=== PATIENT | male | born 1995 | race Caucasian/White ===

== ENCOUNTER 2021-06-05 10:34 | Emergency (ER) | payer OTHER, SELFPAY ==
[2021-06-05 10:49] VITALS: BP 128/95; PULSE 109; RESP 16; TEMP 36.3; O2SAT 99
--- NOTE | 2021-06-05 11:47 | ED.NAVMDI ---
HPI - Nausea/Vomiting/Diarrhea General Chief complaint: Nausea/Vomiting/Diarrhea Stated complaint: Nausea Time Seen by Provider: 06/05/21 11:48 Source: patient Mode of arrival: ambulatory Limitations: no limitations History of Present Illness HPI Narrative: Guru Gandhi is a 25-year-old male with anxiety and depression who comes to [facility] for nausea vomiting diarrhea since he ate a cheeseburger on Tuesday. However he has been in the [facility] the last few hours and has not vomited Related Data Home Medications Medication Instructions Recorded Confirmed buspirone 10 mg PO DAILY 06/05/21 06/05/21 duloxetine 30 mg PO DAILY 06/05/21 06/05/21 Allergies Allergy/AdvReac Type Severity Reaction Status Date / Time No Known Allergies Allergy Unknown Unverified 06/05/21 11:13 Review of Systems Review of Systems: CONSTITUTIONAL: Denies fever, chills, sweats. EYES: Denies visual changes, redness, discharge. ENT: Denies rhinorrhea, congestion, sore throat, otalgia. CARDIOVASCULAR: Denies chest pain, palpitations, edema. RESPIRATORY: Denies dyspnea, wheezing, cough GASTROINTESTINAL: Denies abdominal pain, has nausea, vomiting, diarrhea. GENITOURINARY: Denies dysuria, hematuria, abnormal discharge SKIN: Denies rash or itching. NEUROLOGIC: Denies numbness, or focal weakness. PSYCHIATRIC: Denies anxiety or depression. PMFSH Past Medical History Medical History Anxiety Depression Family History Family History Other No acute medical problems Social History Social History (Updated 06/05/21 @ 11:58 by Chastity Suarez CNP) Smoking status: Current some day smoker Alcohol intake: current Comments At time of signature, I agree with nursing past medical, surgical, social and family history. There is no relevant family history pertinent to the presenting complaint. Elevation of blood pressure, is anxious and blood pressure elevated due to situation. Discussed follow-up with primary care physician Exam Narrative: GENERAL: This is a well-nourished, well-developed patient, in moderate distress. Very anxious HEAD: normocephalic, atraumatic. EYES:. Sclera clear/white. Vision is grossly intact. EARS: External ears normal, . Hearing grossly intact. NOSE: External nose normal without nasal discharge, nares without redness, no rhinorrhea. THROAT: Mucous membranes dry, NECK: Neck supple, non-tender CARDIOVASCULAR: Tachycardic rate and rhythm without murmurs, gallops, or rubs. RESPIRATORY: Clear to auscultation. Breath sounds equal bilaterally. No wheezes, rales, or rhonchi. GASTROINTESTINAL: Abdomen soft, non-tender epigastric and flank SKIN: warm, intact with no suspicious lesions or rash, good texture and turgor. NEURO: awake, alert, and oriented to person, place and time. There were no obvious focal neurologic abnormalities. Steady gait EXTREMITIES: Normal range of motion. BACK: Nontender without deformity Course Course Emergency Course: Patient is here with nausea vomiting diarrhea after eating a double cheeseburger on Tuesday still having some nausea and difficulty swallowing and vomiting Started on Zofran, Protonix and Imodium-discussed how to use this and cautions about reasons to follow-up in the emergency room including continued dehydration, fever, increased pain Vital Signs Vital signs: Vital Signs Temperature 97.3 F L 06/05/21 10:49 Pulse Rate 109 H 06/05/21 10:49 Respiratory Rate 16 06/05/21 10:49 Blood Pressure 128/95 H 06/05/21 10:49 Pulse Oximetry 99 06/05/21 10:49 Temperature 97.3 F L 06/05/21 10:49 Pulse Rate 109 H 06/05/21 10:49 Respiratory Rate 16 06/05/21 10:49 Blood Pressure 128/95 H 06/05/21 10:49 Pulse Oximetry 99 06/05/21 10:49 MDM - Nausea/Vomiting/Diarrhea Differential Diagnosis Differential diagnosis: Likely traveler's diarrhea, food poison
== END 2021-06-05 12:04 | disposition home or self-care (01) ==
PROVIDERS: Emergency Provider Nurse Practitioner; PCP Family Medicine Sports Medicine
DX: K52.9 Noninfective gastroenteritis and colitis, unspecified (principal); E86.0 Dehydration; F17.200 Nicotine dependence, unspecified, uncomplicated; F41.9 Anxiety disorder, unspecified; F32.9 Major depressive disorder, single episode, unspecified
CPT/HCPCS: 99213; G0463